=== PATIENT | female | born 1995 | race Hispanic/Latino ===

== ENCOUNTER 2017-11-07 15:22 | Observation (INO) | payer MEDICAID ==
[~2017-11-07] VITALS: Ht 162.6 cm; Wt 69.4 kg
[2017-11-07] MEDS ORDERED: LACTATED RINGERS 1000ML 1,000 ML IV PRN (15:25)
[2017-11-07 16:43] LABS: HEMATOCRIT 33.1 % (36-48); MEAN CORPUSCULAR HEMOGLOBIN 32.2 pg (27.0-33.0); MEAN CORPUSCULAR HGB CONC 34.5 g/dL (32.0-36.0); MEAN CORPUSCULAR VOLUME 93.1 fL (80-100); PLATELET COUNT (AUTO) 200 K/uL (130-400); RED BLOOD CELL COUNT(AUTO) 3.55 MIL/uL (4.00-5.50); RED CELL DISTRIBUTION WIDTH 12.8 % (11.0-15.5); WHITE BLOOD COUNT (AUTO) 5.5 K/uL (4.8-10.8)
[2017-11-09 07:30] LABS: HEPATITIS Bs ANTIGEN SCREEN P Negative (Negative)
== END 2017-11-07 17:54 | disposition home or self-care (01) ==
LOC: LDH 15:22
PROVIDERS: ADMIT Specialist; ATTEND Specialist
DX: O30.003 Twin pregnancy, unspecified number of placenta and unspecified number of amniotic sacs, third trimester (principal); Z3A.36 36 weeks gestation of pregnancy
CPT/HCPCS: 36415; 59025; 76819; 85027; 86592; 86850; 86900; 86901; 87340; G0378 ×4; 96360; 96361